=== PATIENT | female | born 1990 | race Caucasian/White ===

== ENCOUNTER → 2018-01-14 | Outpatient (CLI) | payer BC, OTHER ==
--- NOTE | 2018-01-14 15:59 | Diagnostic Imaging Report ---
PROCEDURE: US OB SINGLE FETUS <14 WKS. TECHNIQUE: Multiple Real-time grayscale images were obtained over the gravid uterus in various projections. INDICATION: dating. FINDINGS: An intrauterine gestational sac containing a pole is seen. The measurements are consistent with a 12 week 5 day gestation. The heart rate was recorded at 163 BPM. No perigestational sac hemorrhage is detected. Adnexal evaluation demonstrates the left ovary to be unremarkable. The right ovary was not visualized. IMPRESSION: Single live IUP of 12 weeks 5 days gestational age. The estimated date of confinement sonographically is 07/24/2018. Dictated by: Dictated on workstation # [id number]
== END ==
LOC: RAD 12:30
PROVIDERS: ATTEND Family Medicine
DX: Z36.89 Encounter for other specified antenatal screening (principal); Z3A.12 12 weeks gestation of pregnancy
CPT/HCPCS: 76801

== ENCOUNTER 2018-03-25 22:57 | Emergency (ER) | payer BC ==
[~2018-03-25] VITALS: Ht 158.8 cm; Wt 68.0 kg
--- OUTSIDE RECORDS SUMMARY | 2018-03-25 23:02 | XMS REPORT | Continuity of Care Document ---
Author Author [facility] Organization [facility] Address Unknown Phone Unavailable Allergies There is no data. Medications There is no data. Problems Date Dx Coded Attending Type Code Diagnosis Diagnosed By 01/14/2018 PRERNA ULRICH MD, Ot Z36.89 ENCOUNTER FOR OTHER SPECIFIED 01/14/2018 PRERNA ULRICH MD, Ot Z3A.12 12 WEEKS GESTATION OF 01/29/2018 PRERNA ULRICH MD, Ot Z36.89 ENCOUNTER FOR OTHER SPECIFIED 01/29/2018 PRERNA ULRICH MD, Ot Z3A.12 12 WEEKS GESTATION OF Procedures There is no data. Results There is no data. Encounters ACCT No. Visit Date/Time Discharge Status Pt. Type Provider Facility Loc./Unit Complaint [id number] 03/18/2018 07:37:00 03/18/2018 23:59:59 CLS Preadmit HERMINIO ARMENDARIZ DO [facility] RAD [id number] 01/14/2018 12:30:00 01/14/2018 23:59:59 CLS Outpatient PRERNA ULRICH MD [facility] RAD NORMAL [id number] 08/25/2014 16:42:00 08/25/2014 23:59:59 CLS Outpatient ARGELIA MCKNIGHT MD [facility] RT
--- NOTE | 2018-03-26 01:21 | ED General ---
General Chief Complaint: Hip/Pelvic Problems Stated Complaint: 22 WKS , TAILBONE POPPED NO OTHER SYMPTOMS Nursing Triage Note: PATIENT STATES THAT SHE HAS HAD A COUGH FOR THE PAST MONTH AND COUGHED THIS EVENING AT 1800 AND FELT A POP IN HER TAILBONE. SINCE THEN SHE CAN'T PUT ANY PRESSURE ON IT OR SIT. SHE IS ABLE TO STAND UP AND WALK AROUND WITHOUT PAIN. Nursing Sepsis Screen: No Definite Risk Source of Information: Patient Exam Limitations: No Limitations History of Present Illness Date Seen by Provider: Mar 26, 2018 Time Seen by Provider: 00:14 Initial Comments This 27-year-old woman at about 22 weeks gestational age presents to the emergency room with pain around the coccyx. She states this started during a coughing episode while at work. It is now very painful to sit or lay down. She cannot tolerate driving. She denies any blunt trauma. She has no sores, abscesses, or cyst that she is aware of. She has not taken any medications for this problem. She first noticed the pain around 18:00 when she felt a "pop" near her tailbone. Allergies and Home Medications Allergies Coded Allergies: No Known Drug Allergies (Unverified , 03/25/18) Patient Home Medication List Home Medication List Reviewed: Yes Review of Systems Review of Systems Constitutional: no symptoms reported EENTM: no symptoms reported Respiratory: no symptoms reported Cardiovascular: no symptoms reported Gastrointestinal: no symptoms reported Genitourinary: see HPI : Yes Expected Date of Delivery: Jul 24, 2018 Musculoskeletal: no symptoms reported, see HPI Skin: no symptoms reported Psychiatric/Neurological: No Symptoms Reported Hematologic/Lymphatic: No Symptoms Reported Past Cckgeem-Mthuvi-Dtzquc Hx Patient Social History Alcohol Use: Denies Use Recreational Drug Use: No Smoking Status: Never a Smoker Recent Foreign Travel: No Contact w/Someone Who Travel: No Recent Infectious Disease Expo: No Past Medical History Surgeries: Yes Eye Surgery, Orthopedic Respiratory: No Cardiac: No Neurological: No : Yes Expected Date of Delivery: Jul 24, 2018 Reproductive Disorders: No Genitourinary: No Gastrointestinal: No Musculoskeletal: No Endocrine: No HEENT: No Cancer: No Physical Exam Vital Signs Vital Signs - First Documented 03/25/18 23:26 Temp 98.0 Pulse 120 Resp 20 B/P (MAP) 135/82 (99) Pulse Ox 98 O2 Delivery Room Air Capillary Refill : Less Than 3 Seconds Height, Weight, BMI Height: 5'2.50" Weight: 150lbs. oz. 68.790567ct; BMI Method:Estimated General Appearance: WD/WN, Mild Distress HEENT: PERRL/EOMI, Normal ENT Inspection Respiratory: Lungs Clear, Normal Breath Sounds, No Accessory Muscle Use Cardiovascular: Regular Rate, Rhythm, No Edema, No Murmur Extremity: No Pedal Edema Neurologic/Psychiatric: Alert, Oriented x3, No Motor/Sensory Deficits, Normal Mood/Affect, cracker off II-XII Norm as Tested Skin: Normal Color, Warm/Dry Progress/Results/Core Measures Suspected Sepsis Recent Fever Within 48 Hours: No Infection Criteria Present: None New/Unexplained Altered Menta: No Sepsis Screen: No Definite Risk SIRS Temperature:98.0 Pulse: 120 Respiratory Rate: 20 Blood Pressure 135 /82 Mean: 99 Results/Orders Vital Signs/I&O 03/25/18 03/26/18 23:26 01:25 Temp 98.0 Pulse 120 99 Resp 20 20 B/P (MAP) 135/82 (99) 132/72 (92) Pulse Ox 98 98 O2 Delivery Room Air Capillary Refill : Less Than 3 Seconds Blood Pressure Mean: 99 Progress Note : Progress Note Patient was seen and examined. She stated she could not lie down on the exam table, even on her side. Instead she preferred to lean over the exam table. Exam was somewhat limited in this position. No lesions or signs of infection were seen or palpated during the exam. Patient seemed to have tenderness even to just the soft tissue without pressing on the coccyx itself. I'm uncertain of the etiology of her pain. I offered to treat her pain with medications which she declined stating she cannot take pills of any kind. She was tearful and seemed upset that no pathology was identified. Departure Impression Primary Impression: Coccydynia Disposition: HOME, SELF-CARE Condition: Stable/Unchanged Departure-Patient Inst. Decision time for Depature: 01:19 Referrals: ARGELIA MCKNIGHT MD (PCP/Family) Primary Care Physician Add. Discharge Instructions: You may take shbq-zkk-gigewgd Tylenol up to 1000 mg every 6 hours as needed for pain. Please contact Dr. ARMENDARIZ first thing in the morning for further direction. Return to care if you have worsening symptoms or develop new symptoms such as swelling or redness around the painful area or fevers. You may try icing the affected area in 20 minute intervals to reduce pain. Also consider using a doughnut pillow or inner tube to reduce pressure over the tailbone area. All discharge instructions reviewed with patient and/or family. Voiced understanding. Copy Copies To 1: HERMINIO ARMENDARIZ JOSHUA T MD Mar 26, 2018 01:21
[2018-03-26 01:25] VITALS: BP 132/72
== END 2018-03-26 01:24 | disposition home or self-care (01) ==
LOC: EDUNIT# 22:57 → ER 22:58
DX: O99.89 Other specified diseases and conditions complicating pregnancy, childbirth and the puerperium (principal); M53.3 Sacrococcygeal disorders, not elsewhere classified; Z3A.22 22 weeks gestation of pregnancy
CPT/HCPCS: 99281

== ENCOUNTER → 2018-04-07 | Outpatient (CLI) | payer BC ==
--- NOTE | 2018-04-07 14:27 | Diagnostic Imaging Report ---
INDICATION: Undergoing anatomical assessment. TECHNIQUE: Multiple real-time grayscale images were obtained over the gravid uterus. COMPARISON: None FINDINGS: There is presence of single viable intrauterine , currently in transverse orientation. Normal amount of amniotic fluid. Placenta is posterior and without previa. anatomical assessment demonstrates the kidneys, bladder, stomach, intracranial structures, four-chamber heart, three-vessel cord, and cord insertion site to be unremarkable. The spine cannot be well visualized owing to positioning. Additionally, the four-chamber heart is limited in evaluation. Gestational sac appearing unremarkable. No abnormal perigestational fluid collections. Visualized portions of the cervix appearing unremarkable. adnexal structures are not imaged. Biometrical measurements are as follows: Biparietal 5.86 cm, age 24 weeks 0 days. Head circumference 22.22 cm, age 24 weeks 2 days. Abdominal circumference 18.06 cm, age 23 weeks 0 days. Femur length 4.37 cm, age 24 weeks 3 days. Sonographic estimate age: 24 weeks 0 days. Sonographic estimated date of delivery: 07/28/2018. Estimated Weight: 614 gm (+/- 90 gm). LMP percentile: 8%. heart rate: 143 beats per minute. number: 1 of 1. IMPRESSION: Single viable intrauterine , currently in transverse orientation. Sonographic estimated age is 24 weeks 0 days for an estimated date of delivery of July 28, 2018. No abnormalities noted at this time. However, the spine cannot be well assessed owing to positioning. Additionally, there is somewhat limited assessment of the four-chamber heart. Dictated by: Dictated on workstation # [id number]
== END ==
LOC: RAD 12:10
PROVIDERS: ATTEND Obstetrics & Gynecology
DX: Z36.89 Encounter for other specified antenatal screening (principal); Z3A.24 24 weeks gestation of pregnancy
CPT/HCPCS: 76805

== ENCOUNTER 2018-07-06 18:52 | Inpatient (IN) | payer BC ==
[~2018-07-06] VITALS: Ht 158.8 cm; Wt 72.6 kg
--- NOTE | 2018-07-06 19:00 | NUR ---
JOIE CLEMENT presented to unit via ambulation from ED registration/home, accompanied by SO & friend, for INDUCTION. JOIE CLEMENT weighed, gowned, voided, and to bed. EFHM and TOCO applied, VS taken. JOIE CLEMENT oriented to bed controls, call light, TV, heat, and A/C controls.
[2018-07-06 19:22] VITALS: BP 123/77
[2018-07-06] MEDS ORDERED: D5 LR IV SOLUTION 1,000 ML IV ONE (19:29)
[2018-07-06] MEDS ORDERED: LACTATED RINGERS 1,000 ML IV ONE (19:30)
--- OUTSIDE RECORDS SUMMARY | 2018-07-06 19:48 | XMS REPORT | Continuity of Care Document ---
Author Author [facility] Organization [facility] Address Unknown Phone Unavailable Allergies Active Description Code Type Severity Reaction Onset Reported/Identified Relationship to Patient Clinical Status Yes No Known Drug Allergies [id number] Drug Allergy Unknown N/A 03/25/2018 Medications There is no data. Problems Date Dx Coded Attending Type Code Diagnosis Diagnosed By 01/14/2018 PRERNA ULRICH MD Ot Z36.89 ENCOUNTER FOR OTHER SPECIFIED 01/14/2018 PRERNA ULRICH MD Ot Z3A.12 12 WEEKS GESTATION OF 01/29/2018 PRERNA ULRICH MD Ot Z36.89 ENCOUNTER FOR OTHER SPECIFIED 01/29/2018 PRERNA ULRICH MD Ot Z3A.12 12 WEEKS GESTATION OF 03/25/2018 PRERNA ULRICH MD Ot Z36.89 ENCOUNTER FOR OTHER SPECIFIED 03/25/2018 PRERNA ULRICH MD Ot Z3A.12 12 WEEKS GESTATION OF 03/26/2018 PHILIP DEL VALLE MD Ot M53.3 SACROCOCCYGEAL DISORDERS, NOT ELSEWHERE 03/26/2018 PHILIP DEL VALLE MD T Ot O26.892 OTH RELATED CONDITIONS, SECOND 03/26/2018 PHILIP DEL VALLE MD T Ot O99.89 OTH DISEASES AND CONDITIONS COMPL PREG/C 03/26/2018 PHILIP DEL VALLE MD Ot Z3A.22 22 WEEKS GESTATION OF 03/26/2018 PHILIP DEL VALLE MD Ot M53.3 SACROCOCCYGEAL DISORDERS, NOT ELSEWHERE 03/26/2018 PHILIP DEL VALLE MD Ot O26.892 OTH RELATED CONDITIONS, SECOND 03/26/2018 PHILIP DEL VALLE MD T Ot O99.89 OTH DISEASES AND CONDITIONS COMPL PREG/C 03/26/2018 PHILIP DEL VALLE MD T Ot Z3A.22 22 WEEKS GESTATION OF 04/08/2018 HERMINIO ARMENDARIZ DO Ot Z36.89 ENCOUNTER FOR OTHER SPECIFIED 04/08/2018 HERMINIO ARMENDARIZ DO Ot Z3A.24 24 WEEKS GESTATION OF 04/27/2018 HERMINIO ARMENDARIZ DO Ot Z36.89 ENCOUNTER FOR OTHER SPECIFIED 04/27/2018 HERMINIO ARMENDARIZ DO Ot Z3A.24 24 WEEKS GESTATION OF Procedures There is no data. Results There is no data. Encounters ACCT No. Visit Date/Time Discharge Status Pt. Type Provider Facility Loc./Unit Complaint [id number] 04/07/2018 12:10:00 04/07/2018 23:59:59 CLS Outpatient HERMINIO ARMENDARIZ DO [facility] RAD [id number] 03/25/2018 22:58:00 03/26/2018 01:24:00 DIS Emergency ELIGIO FRANCISCO, PHILIP Peres [facility] ER 22 WKS , TAILBONE POPPED NO OTHER SYMPTOMS [id number] 01/14/2018 12:30:00 01/14/2018 23:59:59 CLS Outpatient MOJGAN FRANCISCO, PRERNA Basilio [facility] RAD NORMAL [id number] 08/25/2014 16:42:00 08/25/2014 23:59:59 CLS Outpatient JUAN LUIS FRANCISCO, ARGELIA Viera [facility] RT
[2018-07-06] MEDS ORDERED: MISOPROSTOL 100 MCG (CYTOTEC) TAB ONE (19:54)
[2018-07-06] MEDS ORDERED: LACTATED RINGERS 1,000 ML IV NR (19:57)
[2018-07-06] MEDS ORDERED: MISOPROSTOL 100 MCG (CYTOTEC) TAB PO NR (20:00)
[2018-07-06 20:06] VITALS: BP 123/64
[2018-07-06 20:52] LABS: BASOPHILS % (AUTO) 0 % (0-10); EOSINOPHILS # (AUTO) 0.1 10^3/uL (0.0-0.3); EOSINOPHILS % (AUTO) 1 % (0-10); HEMATOCRIT 30 % (35-52); HEMOGLOBIN 10.1 G/DL (11.5-16.0); LYMPHOCYTES # (AUTO) 2.3 X 10^3 (1.0-4.0); LYMPHOCYTES % (AUTO) 22 % (12-44); MEAN CORPUSCULAR HEMOGLOBIN 30 PG (25-34); MEAN CORPUSCULAR HGB CONC 34 G/DL (32-36); MEAN CORPUSCULAR VOLUME 88 FL (80-99); MEAN PLATELET VOLUME 11.6 FL (7.4-10.4); MONOCYTES # (AUTO) 0.8 X 10^3 (0.0-1.0); MONOCYTES % (AUTO) 8 % (0-12); NEUTROPHILS # (AUTO) 7.1 X 10^3 (1.8-7.8); NEUTROPHILS % (AUTO) 69 % (42-75); PLATELET COUNT 211 10^3/uL (130-400); RED CELL DISTRIBUTION WIDTH 12.8 % (10.0-14.5); WHITE BLOOD COUNT 10.2 10^3/uL (4.3-11.0)
[2018-07-06] MEDS: D5 LR IV SOLUTION 1,000 ML IV SCH (20:52)
[2018-07-06 21:27] VITALS: BP 118/74
--- NOTE | 2018-07-06 21:28 | History & Physical-OB ---
OB - Chief Complaint & HPI Date/Time Date of Admission: Date of Admission: Jul 06, 2018 at 18:52 Date seen by a Provider: Jul 07, 2018 Time Seen by a Provider: 08:00 Chief Complaint/History OB-Reason for Admission/Chief: Induction of Labor Hx : 1 Hx Para: 0 Expected Date of Delivery: Jul 23, 2018 Gestational Age in Weeks: 37 Gestational Age in Days: 4 Indication for : other (Oligohydramnios) Admission Nurse Assessment Rev: Yes History of Labs O pos Antibody neg RI RPR NR HBsAg NR HIV NR GC neg GBS neg Allergies and Home Medications Allergies Coded Allergies: No Known Drug Allergies (Unverified , 03/25/18) Patient Home Medication List Home Medication List Reviewed: Yes OB - History Hx of Present Care: Yes Ultrasounds: Abnormal US findings (Oligo noted at 35 weeks after measuring size < dates) Obstetrical Complications: None Medical Complications: None Patient Past Medical History N/A OB - Admission Exam Physical Exam HEENT: NCAT Heart: Rhythm Normal Lungs: Clear Abdomen: Gravid Extremities: Normal Reflexes: Normal Cervical Dilatation: 1cm Effacement: 75% Station: -1 Membranes: Intact Heart Rate: 130's Accelerations: Accelerations Present Decelerations: No Decelerations Short Term Variability: Present Fci Variability: Absent (0-2) Contractions on Admission: >10 Minutes Apart Labs Laboratory Tests Test 07/06/18 19:40 Range/Units White Blood Count 10.2 4.3-11.0 10^3/uL Red Blood Count 3.38 L 4.35-5.85 10^6/uL Hemoglobin 10.1 L 11.5-16.0 G/DL Hematocrit 30 L 35-52 % Mean Corpuscular Volume 88 80-99 FL Mean Corpuscular Hemoglobin 30 25-34 PG Mean Corpuscular Hemoglobin Concent 34 32-36 G/DL Red Cell Distribution Width 12.8 10.0-14.5 % Platelet Count 211 130-400 10^3/uL Mean Platelet Volume 11.6 H 7.4-10.4 FL Neutrophils (%) (Auto) 69 42-75 % Lymphocytes (%) (Auto) 22 12-44 % Monocytes (%) (Auto) 8 0-12 % Eosinophils (%) (Auto) 1 0-10 % Basophils (%) (Auto) 0 0-10 % Neutrophils # (Auto) 7.1 1.8-7.8 X 10^3 Lymphocytes # (Auto) 2.3 1.0-4.0 X 10^3 Monocytes # (Auto) 0.8 0.0-1.0 X 10^3 Eosinophils # (Auto) 0.1 0.0-0.3 10^3/uL Basophils # (Auto) 0.0 0.0-0.1 10^3/uL OB - Assessment/Plan/Diagnosis Assessment Assessment: induction of labor Admission Dx 27 yo @ 37.5 weeks Oligohydramnios Size < dates GBS neg Admission Status: Inpatient Order (span 2 midnights) Reason for Inpatient Admission: Induction of labor at term Plan Plan: Induction Induction Method: per Misoprostol Protocol HERMINIO ARMENDARIZ DO Jul 06, 2018 21:28
--- NOTE | 2018-07-06 22:20 | NUR ---
Dr. Cox called to check on pt, update given, new order rc'd for Dilaudid 1 mg IV X1 prn pain.
[2018-07-06 22:28] VITALS: BP 119/66
[2018-07-06] MEDS: CATHETER FLUSH 10 ML SYR IV SCH (22:57)
[2018-07-06 23:11] LABS: BILIRUBIN,URINE NEGATIVE (NEGATIVE); CLARITY,URINE VERY CLOUDY; COLOR,URINE YELLOW; GLUCOSE, URINE (UA) NEGATIVE (NEGATIVE); KETONES,URINE NEGATIVE (NEGATIVE); LEUKOCYTE ESTERASE ,URINE 1+ (NEGATIVE); NITRITE,URINE NEGATIVE (NEGATIVE); PH,URINE 7 (5-9); PROTEIN,URINE 2+ (NEGATIVE); UROBILINOGEN,URINE NORMAL (NORMAL)
[2018-07-06 23:17] LABS: BACTERIA,URINE MODERATE /HPF; RBC,URINE TNTC /HPF; WBC,URINE 0-2 /HPF
[2018-07-06] MEDS ORDERED: PNV91TAB6 PO (23:18)
[2018-07-06 23:28] VITALS: BP 111/53
[2018-07-07] VITALS (92 sets, daily range): BP systolic 88–133; BP diastolic 50–90
[2018-07-07] MEDS: MISOPROSTOL 100 MCG (CYTOTEC) TAB PO SCH ×2 (00:05→04:23)
[2018-07-07] MEDS: D5 LR IV SOLUTION 1,000 ML IV SCH ×3 (04:39→20:50)
--- NOTE | 2018-07-07 05:55 | NUR ---
Dr. Cox called to check on pt, update given, new order rc'd to start Pitocin per protocol @ 629.
[2018-07-07] MEDS: CATHETER FLUSH 10 ML SYR IV SCH ×2 (06:17→15:42)
[2018-07-07] MEDS ORDERED: OXYTOCIN/NORMAL SALINE 500 ML IV ONE (06:22)
[2018-07-07] MEDS ORDERED: OXYTOCIN/NORMAL SALINE 500 ML IV SCH (06:30)
[2018-07-07] MEDS ORDERED: HYDROmorphone 2 MG/ML VIAL (DILAUDID) IV ONE ×2 (06:45→13:15)
--- NOTE | 2018-07-07 07:00 | NUR ---
REPORT FROM Eran WOODS RN.
[2018-07-07] MEDS ORDERED: FLU QUADRIvalent (5+ YOA) 2018-2019 (AFLURIA) 0.5 ML IM ONE (07:15)
[2018-07-07] MEDS ORDERED: HYDROmorphone 2 MG/ML VIAL (DILAUDID) ONE (13:11)
[2018-07-07] MEDS ORDERED: ONDANSETRON 4 MG/2 ML (SDV) Z0FRAN ONE (17:06)
[2018-07-07] MEDS ORDERED: ONDANSETRON 4 MG/2 ML (SDV) Z0FRAN IVP PRN (17:15)
[2018-07-07] MEDS ORDERED: SUFENTA 0.6MCG/ML BUPIVA 0.125 100 ML ONE (19:32)
[2018-07-07] MEDS ORDERED: BUPIVACAINE 0.25% 30 ML (SENSORCAINE) VIAL ONE (19:51)
[2018-07-07] MEDS ORDERED: LIDOCAINE PF 2% 5 ML (XYLOCAINE) VIAL ONE (19:51)
[2018-07-07] MEDS ORDERED: fentaNYL INJECTION 100 MCG/2 ML AMP ONE (19:51)
[2018-07-07] MEDS: EPIDURAL (SUFENTA 0.6MCG/ML BUPIVA 0.125%) 100 ML BAG EPI PRN (20:26)
[2018-07-07] MEDS ORDERED: LACTATED RINGERS 1,000 ML IV SCH (20:31)
[2018-07-07] MEDS ORDERED: NALOXONE 0.4 MG/ML 1 ML (NARCAN) VIAL IV PRN (20:45)
[2018-07-07] MEDS ORDERED: diphenhydrAMINE 50 MG/ML INJ (BENADRYL) IV PRN (20:45)
[2018-07-07] MEDS ORDERED: ONDANSETRON 4 MG/2 ML (SDV) Z0FRAN IV PRN (20:45)
[2018-07-08] VITALS (34 sets, daily range): BP systolic 81–121; BP diastolic 50–84
[2018-07-08] MEDS: CATHETER FLUSH 10 ML SYR IV SCH ×2 (00:55→07:26)
[2018-07-08] MEDS: D5 LR IV SOLUTION 1,000 ML IV SCH (03:47)
[2018-07-08] MEDS: EPIDURAL (SUFENTA 0.6MCG/ML BUPIVA 0.125%) 100 ML BAG EPI PRN (04:57)
--- NOTE | 2018-07-08 05:07 | NUR ---
Called Dr. Cox, update given including recent decel @ 2685, no new orders rc'd.
--- NOTE | 2018-07-08 06:12 | NUR ---
Notified Dr[facility] pt's temp. 0616 - New orders rc'd to notify supervisor of officials to call surg crew for c/s. POC reviewed w/pt. & , questions answered, both verbalized understanding.
[2018-07-08] MEDS ORDERED: CITRIC ACID/SOB CIT (BICITRA) 30 ML UDC ONE (06:16)
[2018-07-08] MEDS ORDERED: METOCLOPRAMIDE INJ 10 MG/2 ML (REGLAN) ONE (06:16)
[2018-07-08] MEDS ORDERED: FAMOTIDINE 20MG/2ML IV (PEPCID) ONE (06:16)
[2018-07-08] MEDS ORDERED: ceFAZolin INJECTION 1,000 MG ONE (06:24)
[2018-07-08] MEDS ORDERED: WATER (STERILE) FOR INJECTION 10 ML ONE (06:25)
[2018-07-08] MEDS ORDERED: LIDOCAINE PF 2% 5 ML (XYLOCAINE) VIAL ONE ×2 (06:27→07:25)
[2018-07-08] MEDS ORDERED: fentaNYL INJECTION 100 MCG/2 ML AMP ONE ×2 (06:43→07:57)
[2018-07-08] MEDS ORDERED: LACTATED RINGERS 1,000 ML IV PRN (06:44)
[2018-07-08] MEDS ORDERED: METOCLOPRAMIDE INJ 10 MG/2 ML (REGLAN) IV ONE (06:45)
[2018-07-08] MEDS ORDERED: CITRIC ACID/SOB CIT (BICITRA) 30 ML UDC PO ONE (06:45)
[2018-07-08] MEDS ORDERED: FAMOTIDINE 20MG/2ML IV (PEPCID) IV ONE (06:45)
[2018-07-08] MEDS ORDERED: OXYTOCIN/NORMAL SALINE 500 ML IV SCH (06:55)
--- NOTE | 2018-07-08 06:55 | Progress Note-Standard ---
Standard Progress Note Progress Notes/Assess & Plan Date Seen by a Provider: Jul 08, 2018 Time Seen by a Provider: 06:15 Progress/Assessment & Plan Patient admitted Friday evening for IOL at 37.5 due to oligohydramnios. Given cytotec overnight and started on pitocin yesterday morning. She was not progressing, and georges bulb was attempted to be placed without success. AROM was finally able to be done at 1300 yesterday afternoon, pitocin augmentation was continued and epidural was obtained by the patient. She continued to have a dysfunction contraction pattern despite pitocin augmentation, and halving the dose, and restarting the titration. This was attempted several times throughout the day yesterday. Finally this am she had a prolonged decel lasting nearly 5 min with return to baseline this was follow shortly by tachycardia and change in baseline to 170s. Still no cervical change was noted and she never progressed by . I discussed with the patient my concerns for well being with this new onset of tachycardia and with prolonged rupture approaching, as well as her being remote from delivery my concerns for onset of chorioamnionitis if we do not proceed with a more expedited approach. I discussed with the patient , and risk involved vs waiting and continuing attempted vaginal delivery and risk involved. We decided together with S.O. present that would be our best option. OR crew notified and in route will proceed when available HERMINIO ARMENDARIZ DO Jul 08, 2018 6:55 am
--- NOTE | 2018-07-08 06:59 | Discharge Inst-Women's Service ---
Discharge Inst-Women's Serv Depart Medication/Instructions New, Converted or Re-Newed RX: RX on Chart Consults/Follow Up Additional Follow Up: Yes Orders/Referrals Dr. Cox in 7-10 days and in 6 weeks Activity Activity: Activity as Tolerated Driving Instructions: No Driving for 1 Week NO SMOKING: NO SMOKING Nothing Inside Vagina: No Douching, No [place], No Tampons Diet Discharge Diet: No Restrictions Symptoms to Report to : Bleeding Excessive, Pain Increased, Fever Over 101 Degrees F, Vaginal Bleeding Increase, Questions/Concerns For Any Problems or Questions: Contact Your Physician Skin/Wound Care Infection Signs and Symptoms: Increased Redness, Foul Odor of Wound, Increased Drainage, Skin Itchy or Has a Rash, Increased Swelling, Temperature Above 101 F Operative Area Clean and Dry: Keep Incision Clean/Dry Stitches/Melisa/Dermabond: Dermabond, Care of Stitches Bathing Instructions: HERMINIO Nickerson DO Jul 08, 2018 6:59 am
[2018-07-08] MEDS ORDERED: MEASLES,MUMPS,RUBELLA 1 EA INJ SC SCH (07:00)
[2018-07-08] MEDS ORDERED: ceFAZolin INJECTION 1,000 MG in WATER (STERILE) FOR INJECTION 10 ML IV NR (07:00)
[2018-07-08] MEDS ORDERED: ACHD5005 PO (07:00)
[2018-07-08] MEDS ORDERED: TETANUS,DIPTH,PERTUSS P/F (BOOSTRIX) 0.5 ML VIAL IM SCH (07:00)
[2018-07-08] MEDS ORDERED: IBUP-844 PO (07:00)
[2018-07-08] MEDS ORDERED: DOCU100C37 PO (07:00)
[2018-07-08] MEDS ORDERED: HYDROmorphone 2 MG/ML VIAL (DILAUDID) IV PRN (07:00)
[2018-07-08] MEDS ORDERED: ONDANSETRON 4 MG/2 ML (SDV) Z0FRAN IVP PRN ×2 (07:00→08:15)
[2018-07-08] MEDS ORDERED: HYDROcodone/APAP 5 MG/325 MG (LORTAB) TAB PO PRN (07:00)
[2018-07-08] MEDS ORDERED: proPOfol 200 MG/20 ML (DIPRIVAN) VIAL IV ONE (07:22)
[2018-07-08] MEDS ORDERED: METHYLERGONOVINE 0.2 MG/ML (METHERGINE) AMP ONE (07:25)
[2018-07-08] MEDS ORDERED: ROPIVACAINE 5MG/ML 30ML VIAL ONE (07:30)
[2018-07-08] MEDS ORDERED: HYDROmorphone 2 MG/ML VIAL (DILAUDID) IV ONE (08:15)
--- NOTE | 2018-07-08 09:00 | OPERATIVE REPORT ---
DATE OF SERVICE: PREOPERATIVE DIAGNOSES: 1. A 27-year-old G1, P0 at 37 weeks and 5 days gestation. 2. Failure to progress. 3. Prolonged tachycardia. 4. Remote from delivery. POSTOPERATIVE DIAGNOSES: 1. A 27-year-old G1, P0 at 37 weeks and 5 days gestation. 2. Failure to progress. 3. Prolonged tachycardia. 4. Remote from delivery. PROCEDURE: Primary low transverse section. SURGEON: Sky Armendariz DO ANESTHESIA: Epidural, which was bolused. ESTIMATED BLOOD LOSS: 500 mL. URINE OUTPUT: 150 mL clear at the end of the procedure with slight blood tinge that was noted before the procedure. FLUIDS: 1500 mL lactated Ringer's solution. FINDINGS: A live female with Apgars of 2, 4 and a 10 minute 8 with weight pending. Grossly normal appearing uterus, bilateral fallopian tubes and ovaries. SPECIMENS SENT: Placenta. INDICATIONS FOR PROCEDURE: A 27-year-old female was brought in on Friday evening for induction of labor due to oligohydramnios noted on ultrasound. This was initially done due to uterine fundus measuring significantly less than dates. Oligohydramnios was identified at 35 weeks and monitored up to 37, but at 37 weeks, was still present. I discussed with the patient proceeding with induction due to oligohydramnios. Risk of the induction was reviewed with the patient. She was brought in on Friday night. Cytotec was given overnight orally and Pitocin augmentation was started the next morning. Artificial rupture of membranes was performed at 1:00 yesterday afternoon with clear fluid noted. She was noted to be 1 to 2 cm at that point, 70% effaced and -2. Continuous augmentation throughout the day and throughout the evening and roadway designer resulted in times of a dysfunctional contraction pattern; however, there was no cervical change despite the patient becoming acutely more uncomfortable and contractions becoming more and more regular. Due to failure to progress and as well as an onset of tachycardia early this morning, I discussed with the patient my concerns for chorioamnionitis and a prolonged rupture time frame that is approaching. She was remote from delivery at that point, so I discussed with the patient proceeding with delivery. Risks of procedure were discussed with the patient in detail with her and her significant other present. All the questions were answered pertaining to my assessment as well as my plan of care and the reasoning involved there in. After all their questions were answered, they were agreeable to proceed. Consent was obtained. The patient was taken to the operating room. OPERATIVE REPORT IN DETAIL: Once in the operating room, epidural analgesia was bolused and found to be adequate. She was placed in the supine position with leftward tilt, prepped and draped in normal sterile fashion. Anesthesia was tested and timeout was performed. I then proceeded with a Pfannenstiel skin incision with a knife and carried down to the underlying fascia using Bovie cautery. Fascial incision extended laterally using Bovie cautery. Superior aspect of the fascial incision was then grasped with Brent clamps, tented up and dissected off the underlying rectus muscles. The inferior aspect of the fascial incision was then grasped with Brent clamps, tented up and dissected off the underlying rectus muscles. Rectus muscle was then dissected down the midline using Metzenbaum scissors which exposes the peritoneum, which I entered bluntly and extended using blunt traction. An Severo ring retractor was placed within the peritoneal incision, which offers excellent lateral sidewall retraction. I then identified the lower uterine segment, which was found to be thinned out. I made a low transverse incision to the vesicouterine peritoneum and bluntly dissected this off the lower uterine segment, creating a bladder flap. I then proceeded with my myotomy until membranes were visualized, at which point I extended the uterine incision laterally and superiorly using bandage scissors. The was found in the vertex presentation. With gentle fundal pressure, the 's head has elevated up to the incision where it is delivered through the incision. The nares and oropharynx were then bulb suctioned. Anterior and posterior shoulders were delivered. The was then brought into the operative field where the cord was doubly clamped and cut and infant was handed off to waiting pediatric nurses in attendance. Cord blood was collected. A 3-vessel cord with intact placenta was delivered spontaneously thereafter. IV Pitocin was initiated to facilitate uterine contraction. The uterine fundus becomes mildly increased in tone; however, I exteriorized the uterus and clear it of all endometrial clots and debris. Ongoing bimanual manipulation revealed some mild uterine atony, so 0.2 mg of Methergine was ordered to be given IM, which was given by anesthesia at which point uterine tone significantly improved. I then proceeded with closing the uterine incision using 0 Vicryl suture in a locked fashion. A second layer of imbricating 0 Monocryl was placed. Excellent hemostasis was noted after doing this. I then placed the uterus back in the pelvis and copiously irrigated the pelvis using normal saline. Once again, there is no active bleeding noted from any of my dissection planes. I placed Interceed antiadhesive over my low transverse incision and proceeded with closing the peritoneum using 3-0 Vicryl suture in a running fashion after I removed the Severo ring retractor. The rectus muscle was reapproximated using 3-0 Vicryl suture in an interrupted fashion. The fascia was reapproximated using 0 Vicryl suture in running fashion. Subcutaneous tissue was reapproximated using 3-0 plain interrupted subcutaneous stitch and skin was reapproximated using 4-0 Monocryl running subcuticular. Dermabond was applied to the incision, sterile dressing with adhesive white tape. The patient tolerated the procedure well and sent to recovery area in stable condition. Lap and sponge counts were correct at the end of the procedure. Instrument counts correct as well. One gram of Ancef given preoperatively for infection prophylaxis. Job ID: [id number] DocumentID: [id number] Dictated Date: 07/08/2018 08:28:18 [employer] Date: 07/08/2018 08:59:48 Dictated By: SKY ARMENDARIZ DO
--- NOTE | 2018-07-08 09:15 | NUR ---
Pt to room 307 via bed accompanied by PACU staff. Pt oriented to room and call light. VS taken. IV pitocin to pump. SCD's off at this time per pt preference. Family at bedside. FFU, light rubra lochia noted, no clots expressed. Pt c/o pain, toradol given. Fresh ice water provided. Report rec'd from WESTLEY Wilson.
[2018-07-08] MEDS: KETOROLAC 30 MG/ML VIAL IVP SCH ×3 (09:31→21:21)
--- NOTE | 2018-07-08 11:00 | NUR ---
Valiente removed per Eddy Yepez RN. Murtaza performed, fresh vpad and underwear applied. Pt assisted to wheelchair without difficulty. To nsy to see infant.
--- NOTE | 2018-07-08 11:15 | NUR ---
Pt back to room from ns via wheelchair. VS taken. Denies needs or concerns at this time.
[2018-07-08] MEDS ORDERED: CATHETER FLUSH 10 ML SYR IV SCH (14:00)
--- NOTE | 2018-07-08 16:30 | NUR ---
Pt up to void, assisted by family. +void, 400ml urine noted. Pt changed into own clothes. To nsy to see infant.
[2018-07-08] MEDS: DOCUSATE SODIUM 100 MG (COLACE) CAP PO SCH (21:23)
--- NOTE | 2018-07-08 21:23 | NUR ---
Patient finishing up in nsy seeing . Preparing to go back to pp room. No pain or needs at this time.
[2018-07-09 00:30] VITALS: BP 111/67
[2018-07-09] MEDS: KETOROLAC 30 MG/ML VIAL IVP SCH (03:47)
[2018-07-09 03:48] VITALS: BP 108/71
[2018-07-09 06:36] LABS: BASOPHILS % (AUTO) 0 % (0-10); EOSINOPHILS # (AUTO) 0.1 10^3/uL (0.0-0.3); EOSINOPHILS % (AUTO) 0 % (0-10); HEMATOCRIT 27 % (35-52); HEMOGLOBIN 8.9 G/DL (11.5-16.0); LYMPHOCYTES # (AUTO) 1.8 X 10^3 (1.0-4.0); LYMPHOCYTES % (AUTO) 12 % (12-44); MEAN CORPUSCULAR HEMOGLOBIN 29 PG (25-34); MEAN CORPUSCULAR HGB CONC 33 G/DL (32-36); MEAN CORPUSCULAR VOLUME 90 FL (80-99); MEAN PLATELET VOLUME 11.8 FL (7.4-10.4); MONOCYTES # (AUTO) 1.3 X 10^3 (0.0-1.0); MONOCYTES % (AUTO) 9 % (0-12); NEUTROPHILS # (AUTO) 12.3 X 10^3 (1.8-7.8); NEUTROPHILS % (AUTO) 80 % (42-75); PLATELET COUNT 179 10^3/uL (130-400); RED CELL DISTRIBUTION WIDTH 13.1 % (10.0-14.5); WHITE BLOOD COUNT 15.4 10^3/uL (4.3-11.0)
--- NOTE | 2018-07-09 07:22 | Anesthesia-Regional Post-Op ---
Regional Patient Condition Mental Status: Alert, Oriented x3 Circulation: Same as Pre-Op Headache: Absent Sensation: Full Recovery Motor Block: Absent Post Op Complications Complications None Follow Up Care/Instructions Patient Instructions None needed. Anesthesia/Patient Condition Patient is doing well, no complaints, stable vital signs, no apparent adverse anesthesia problems. No complications reported per nursing. ORESTES SCHMIDT CRNA Jul 09, 2018 07:22
[2018-07-09 08:00] VITALS: BP 118/78
[2018-07-09] MEDS: DOCUSATE SODIUM 100 MG (COLACE) CAP PO SCH (09:45)
[2018-07-09] MEDS: IBUPROFEN 600 MG (MOTRIN) TAB PO SCH ×3 (09:51→18:34)
--- NOTE | 2018-07-09 10:26 | Postpartum Progress Note ---
Note Note Day # 1 Subjective: Patient is without complaints. Ambulating, voiding. Tolerating a regular diet without nausea or vomiting. Normal lochia. Pain is well controlled with oral pain medications. Objective: Physical Exam: General - Alert and oriented, no apparent distress Abdomen - Soft, appropriately tender to palpation, non-distended, fundus firm at umbilicus Extremities - no edema, negative Aime's bilaterally Incision: c/d/i Assessment: POD 1 PLTCS Acute blood loss anemia Plan: Routine care. Encourage breast feeding. Encourage ambulation. Ferrous sulfate supplementation. Plan for discharge tomorrow Vitals - Labs Vital Signs - I&O Vital Signs Date Time Temp Pulse Resp B/P (MAP) Pulse Ox O2 Delivery O2 Flow Rate FiO2 07/09/18 08:10 Room Air 07/09/18 08:00 98.8 95 18 118/78 (91) 99 Room Air 07/09/18 03:48 98.4 81 18 108/71 (83) 98 Room Air 07/09/18 00:30 98.4 89 18 111/67 (82) 98 Room Air 07/08/18 19:45 98.4 89 18 119/84 (96) 99 Room Air 07/08/18 15:25 99.6 88 20 121/74 (90) 96 Room Air 07/08/18 12:07 Room Air 07/08/18 11:20 99.7 84 20 120/71 (87) 96 Room Air I & O 07/09/18 07:00 Intake Total 1310 ml Output Total 575 ml Balance 735 ml Labs Laboratory Tests 07/09/18 06:05: White Blood Count 15.4H, Red Blood Count 3.06L, Hemoglobin 8.9L, Hematocrit 27L , Mean Corpuscular Volume 90, Mean Corpuscular Hemoglobin 29, Mean Corpuscular Hemoglobin Concent 33, Red Cell Distribution Width 13.1, Platelet Count 179, Mean Platelet Volume 11.8H, Neutrophils (%) (Auto) 80H, Lymphocytes (%) (Auto) 12, Monocytes (%) (Auto) 9, Eosinophils (%) (Auto) 0, Basophils (%) (Auto) 0, Neutrophils # (Auto) 12.3H, Lymphocytes # (Auto) 1.8, Monocytes # (Auto) 1.3H, Eosinophils # (Auto) 0.1, Basophils # (Auto) 0.0 Microbiology 07/06/18 Urine Culture - Final, Complete See Report HERMINIO ARMENDARIZ DO Jul 09, 2018 10:26
[2018-07-09 11:41] VITALS: BP 108/78
[2018-07-09] MEDS ORDERED: FLU QUADRIvalent (5+ YOA) 2018-2019 (AFLURIA) 0.5 ML IM ONE (16:04)
[2018-07-09 22:28] VITALS: BP 130/74
[2018-07-10 04:00] VITALS: BP 110/68
--- NOTE | 2018-07-10 08:05 | NUR ---
DR. ARMENDARIZ AND THIS RN TO BEDSIDE. ASSESSING PT AND DISCUSSING DISCHARGE. PT DENIES ANY QUESTIONS OR NEEDS AT THIS TIME. WILL RETURN LATER FOR VS AND ASSESSMENT. CALL LIGHT WITHIN REACH. S/O AT THE BEDSIDE.
--- NOTE | 2018-07-10 08:23 | Postpartum Progress Note ---
Note Note Day # 2 Subjective: Patient is without complaints. Ambulating, voiding. Tolerating a regular diet without nausea or vomiting. Normal lochia. Pain is well controlled with oral pain medications. Objective: Physical Exam: General - Alert and oriented, no apparent distress Abdomen - Soft, appropriately tender to palpation, non-distended, fundus firm at umbilicus Extremities - no edema, negative Amie's bilaterally Incision: c/d/i Assessment: POD 2 PLTCS Acute blood loss anemia Plan: Routine care. Encourage breast feeding. Encourage ambulation. Ferrous sulfate supplementation. Plan for discharge today Vitals - Labs Vital Signs - I&O Vital Signs Date Time Temp Pulse Resp B/P (MAP) Pulse Ox O2 Delivery O2 Flow Rate FiO2 07/10/18 04:00 98.8 95 16 110/68 (82) 07/09/18 22:28 98.4 101 18 130/74 (92) Room Air 07/09/18 11:41 98.8 90 18 108/78 (88) 97 Room Air I & O 07/10/18 07:00 Intake Total 1200 ml Balance 1200 ml Labs Microbiology 07/06/18 Urine Culture - Final, Complete See Report HERMINIO ARMENDARIZ DO Jul 10, 2018 08:23
[2018-07-10 09:00] VITALS: BP 118/67
[2018-07-10] MEDS: DOCUSATE SODIUM 100 MG (COLACE) CAP PO SCH (09:01)
--- NOTE | 2018-07-10 09:05 | NUR ---
PT IN BED, HOLDING INFANT. VS OBTAINED. INITIAL SHIFT ASSESSMENT COMPLETED; SEE INTERVENTION FOR FURTHER. COLACE GIVEN PO; SEE EMAR. DR. ROD TO BEDSIDE TO ASSESS INFANT. PT DENIES ANY NEEDS AT THIS TIME. CALL LIGHT WITHIN REACH.
--- NOTE | 2018-07-10 09:56 | NUR ---
DISCHARGE PAPERS PROVIDED AND REVIEWED WITH PT, PT VERBALIZES UNDERSTANDING AND DENIES ANY QUESTIONS AT THIS TIME. PAPER SIGNED. FOLLOW UP APPOINTMENT CARDS X2 AND RX'S X3 ALSO PROVIDED AND PLACED INTO DISCHARGE FOLDER.
--- NOTE | 2018-07-10 10:06 | NUR ---
(1) LORTAB GIVEN PO; SEE EMAR FOR FURTHER. SPRITE, CRACKERS AND PADS PROVIDED PER REQUEST. PT WILL BE DISCHARGED TO [facility]. TEACHING DONE RE: [facility] STATUS AND ROOM SERVICE. NO QUESTIONS VOICED.
--- NOTE | 2018-07-10 10:45 | NUR ---
PT DISCHARGED FROM -[facility] TO [facility] STATUS IN STABLE CONDITION WITH NO S/S OF DISTRESS.
== END 2018-07-10 10:45 | disposition home or self-care (01) | DRG 787 ==
LOC: LDRP 18:52
PROVIDERS: ADMIT Obstetrics & Gynecology; ATTEND Obstetrics & Gynecology
PROC: 10D00Z1 Extraction of Products of Conception, Low, Open Approach (ICD-10-PCS; principal; 2018-07-08 06:58)
DX: O41.03X0 Oligohydramnios, third trimester, not applicable or unspecified (principal); O99.03 Anemia complicating the puerperium; D62 Acute posthemorrhagic anemia; O76 Abnormality in fetal heart rate and rhythm complicating labor and delivery; O75.89 Other specified complications of labor and delivery; O26.843 Uterine size-date discrepancy, third trimester; Z3A.37 37 weeks gestation of pregnancy; Z37.0 Single live birth
CPT/HCPCS: 36415; 81000; 85025; 86850; 86900; 86901; 87088; 90686; 94664

== ENCOUNTER → 2021-11-02 | Outpatient (CLI) | payer BC ==
[~2021-11-02] MED LIST: ACHD5005 PO; DOCU100C37 PO; IBUP-844 PO; PNV91TAB6 PO
--- NOTE | 2021-11-02 16:34 | Diagnostic Imaging Report ---
INDICATION: survey. TECHNIQUE: Multiple real-time grayscale images were obtained over the gravid uterus. COMPARISON: None. FINDINGS: There is a single live fetus in a transverse presentation with head to the maternal right. heart rate was recorded at 156 BPM. Placenta is posterior and marginal. Amniotic fluid index is 15.8 cm. Cervical length is 5.7 cm. kidneys, bladder and stomach are unremarkable. brain is unremarkable. There is a four-chamber heart. There is a three-vessel cord with normal insertion. spine is unremarkable. Biometrical measurements are as follows: Biparietal 4.65 cm, age 20 weeks 1 days. Head circumference 17.82 cm, age 20 weeks 2 days. Abdominal circumference 14.14 cm, age 19 weeks 4 days. Femur length 3.33 cm, age 20 weeks 3 days. Sonographic estimate age: 20 weeks 1 days. Sonographic estimated date of delivery: 03/21/2022. Estimated Weight: 324 gm (+/- 48 gm). LMP percentile: 29%. heart rate: 156 beats per minute. number: 1 of 1. IMPRESSION: Single live IUP of 20 weeks 1 day gestational age with an estimated date of confinement sonographically of 03/21/2022. survey is unremarkable, although the posterior placenta does appear to be in a marginal location. Follow-up would be recommended. Dictated by: Dictated on workstation # [id number]
== END ==
LOC: RAD 15:15
PROVIDERS: ATTEND Obstetrics & Gynecology
DX: Z34.02 Encounter for supervision of normal first pregnancy, second trimester (principal); Z3A.20 20 weeks gestation of pregnancy
CPT/HCPCS: 76805

== ENCOUNTER 2022-02-13 09:50 | Outpatient (CLI) | payer BC ==
[~2022-02-13] VITALS: Ht 157.4 cm; Wt 82.1 kg
[2022-02-13] VITALS (11 sets, daily range): BP systolic 104–135; BP diastolic 61–76
[2022-02-13 10:30] LABS: BILIRUBIN,URINE NEGATIVE (NEGATIVE); CLARITY,URINE CLEAR; COLOR,URINE YELLOW; GLUCOSE, URINE (UA) NEGATIVE (NEGATIVE); KETONES,URINE NEGATIVE (NEGATIVE); LEUKOCYTE ESTERASE ,URINE 1+ (NEGATIVE); NITRITE,URINE NEGATIVE (NEGATIVE); PROTEIN,URINE NEGATIVE (NEGATIVE)
[2022-02-13 10:51] LABS: BACTERIA,URINE FEW /HPF
--- NOTE | 2022-02-14 09:01 | Physician Query-Final Dx ---
,02/14/22 0901: Clinic Account Progress/Dx Physician Query: Please give diagnosis Please include # weeks gestation Date of Service Feb 13, 2022 at 09:50 HERMINIO ARMENDARIZ DO 02/14/22 1156: Clinic Account Progress/Dx DIAGNOSIS: Diagnosis 35 week IUP Fall in ,MayFeb 14, 2022 09:01 HERMINIO ARMENDARIZ DO Feb 14, 2022 11:56
== END 2022-02-13 14:15 | disposition home or self-care (01) ==
LOC: LDRP 09:50 → WSo 09:50
PROVIDERS: ATTEND Obstetrics & Gynecology
DX: O9A.213 Injury, poisoning and certain other consequences of external causes complicating pregnancy, third trimester (principal); Z3A.35 35 weeks gestation of pregnancy
CPT/HCPCS: 81000; 87088

== ENCOUNTER 2022-03-07 05:29 | Outpatient (CLI) | payer BC ==
[~2022-03-07] VITALS: Ht 159.4 cm; Wt 83.0 kg
== END 2022-03-07 12:58 | disposition home or self-care (01) ==
LOC: PREOP 05:29
PROVIDERS: ATTEND Obstetrics & Gynecology
DX: Z01.818 Encounter for other preprocedural examination (principal)

== ENCOUNTER 2022-03-14 05:22 | Inpatient (IN) | payer BC ==
[2022-03-14] VITALS (12 sets, daily range): BP systolic 106–128; BP diastolic 64–86
[~2022-03-14] VITALS: Ht 157.4 cm; Wt 81.0 kg
[2022-03-14] MEDS ORDERED: CATHETER FLUSH 10 ML SYR IV PRN (05:30)
[2022-03-14] MEDS ORDERED: METOCLOPRAMIDE INJ 10 MG/2 ML (REGLAN) IV ONE (05:30)
[2022-03-14] MEDS ORDERED: LACTATED RINGERS 1,000 ML IV PRN (05:30)
[2022-03-14] MEDS ORDERED: ceFAZolin INJECTION 2,000 MG in NS (IVPB) 50 ML IV ONE (05:30)
[2022-03-14] MEDS ORDERED: CITRIC ACID/SOB CIT (BICITRA) 30 ML UDC PO ONE (05:30)
[2022-03-14] MEDS ORDERED: FAMOTIDINE 20MG/2ML IV (PEPCID) IV ONE (05:30)
[2022-03-14] MEDS ORDERED: ceFAZolin INJECTION 2,000 MG ONE (05:47)
[2022-03-14] MEDS ORDERED: CITRIC ACID/SOB CIT (BICITRA) 30 ML UDC ONE (05:47)
[2022-03-14] MEDS ORDERED: METOCLOPRAMIDE INJ 10 MG/2 ML (REGLAN) ONE (05:48)
[2022-03-14] MEDS ORDERED: FAMOTIDINE 20MG/2ML IV (PEPCID) ONE (05:48)
[2022-03-14] MEDS ORDERED: NS (IVPB) 100 ML ONE (05:49)
[2022-03-14 05:55] LABS: BASOPHILS % (AUTO) 0 % (0-10); EOSINOPHILS % (AUTO) 1 % (0-10); HEMATOCRIT 32 % (35-52); HEMOGLOBIN 10.7 g/dL (11.5-16.0); LYMPHOCYTES # (AUTO) 2.8 10^3/uL (1.0-4.0); LYMPHOCYTES % (AUTO) 28 % (12-44); MEAN CORPUSCULAR HEMOGLOBIN 29 pg (25-34); MEAN CORPUSCULAR HGB CONC 34 g/dL (32-36); MEAN CORPUSCULAR VOLUME 87 fL (80-99); MEAN PLATELET VOLUME 11.9 fL (9.0-12.2); MONOCYTES # (AUTO) 0.7 10^3/uL (0.0-1.0); MONOCYTES % (AUTO) 7 % (0-12); NEUTROPHILS # (AUTO) 6.2 10^3/uL (1.8-7.8); NEUTROPHILS % (AUTO) 63 % (42-75); PLATELET COUNT 181 10^3/uL (130-400); WHITE BLOOD COUNT 9.8 10^3/uL (4.3-11.0)
[2022-03-14 05:56] LABS: EOSINOPHILS # (AUTO) 0.1 10^3/uL (0.0-0.3)
[2022-03-14] MEDS: LACTATED RINGERS 1,000 ML IV PRN ×2 (06:00→07:02)
[2022-03-14] MEDS ORDERED: fentaNYL INJ 100 MCG/2 ML AMP ONE (07:03)
[2022-03-14] MEDS ORDERED: OXYTOCIN PRE-MIX DRIP 1,000 ML IV ONE (07:03)
[2022-03-14] MEDS ORDERED: ROPIVACAINE 5MG/ML 30ML VIAL ONE (07:03)
--- NOTE | 2022-03-14 07:25 | History & Physical-OB ---
OB - Chief Complaint & HPI Date/Time Date of Admission: Date of Admission: Mar 14, 2022 at 05:22 Date seen by a Provider: Mar 14, 2022 Time Seen by a Provider: 07:15 Chief Complaint/History OB-Reason for Admission/Chief: Section Hx : 2 Hx Para: 1 Expected Date of Delivery: Mar 20, 2022 Gestational Age in Weeks: 39 Gestational Age in Days: 1 Indication for : desires repeat Admission Nurse Assessment Rev: Yes History of Labs O pos Antibody neg RI RPR NR HBsAg NR HIV NR GC neg GBS neg Allergies and Home Medications Allergies Coded Allergies: No Known Drug Allergies (Unverified , 03/07/22) Patient Home Medication List Home Medication List Reviewed: Yes No Active Prescriptions or Reported Meds OB - History Hx of Present Care: Yes Ultrasounds: Normal mid trimester US Obstetrical Complications: None Medical Complications: None Patient Past Medical History N/A Social History/Family History 2nd Hand Smoke Exposure: No Immunizations Influenza Vaccine Up-to-Date: Yes; Up-to-Date First/Initial COVID19 Vaccine: 2020 Second COVID19 Vaccination: 2020 OB - Admission Exam Physical Exam Vitals: Vital Signs 03/14/22 03/14/22 05:31 06:32 Temp 36.8 Pulse 85 Resp 18 B/P (MAP) 118/71 (87) Pulse Ox 99 O2 Delivery Room Air HEENT: NCAT Heart: Rhythm Normal Lungs: Clear Abdomen: Gravid Extremities: Normal Reflexes: Normal Membranes: Intact Heart Rate: 130's Accelerations: Accelerations Present Decelerations: No Decelerations Short Term Variability: Present Bank Accountant Variability: Average (6-25) Contractions on Admission: >10 Minutes Apart Intensity: Mild Labs Laboratory Tests Test 03/14/22 05:40 Range/Units White Blood Count 9.8 4.3-11.0 10^3/uL Red Blood Count 3.66 L 3.80-5.11 10^6/uL Hemoglobin 10.7 L 11.5-16.0 g/dL Hematocrit 32 L 35-52 % Mean Corpuscular Volume 87 80-99 fL Mean Corpuscular Hemoglobin 29 25-34 pg Mean Corpuscular Hemoglobin Concent 34 32-36 g/dL Red Cell Distribution Width 12.8 10.0-14.5 % Platelet Count 181 130-400 10^3/uL Mean Platelet Volume 11.9 9.0-12.2 fL Immature Granulocyte % (Auto) 0 % Neutrophils (%) (Auto) 63 42-75 % Lymphocytes (%) (Auto) 28 12-44 % Monocytes (%) (Auto) 7 0-12 % Eosinophils (%) (Auto) 1 0-10 % Basophils (%) (Auto) 0 0-10 % Neutrophils # (Auto) 6.2 1.8-7.8 10^3/uL Lymphocytes # (Auto) 2.8 1.0-4.0 10^3/uL Monocytes # (Auto) 0.7 0.0-1.0 10^3/uL Eosinophils # (Auto) 0.1 0.0-0.3 10^3/uL Basophils # (Auto) 0.0 0.0-0.1 10^3/uL Immature Granulocyte # (Auto) 0.0 0.0-0.1 10^3/uL OB - Assessment/Plan/Diagnosis Assessment Assessment: section Admission Dx 31 yo @ 39 weeks Previous Admission Status: Inpatient Order (span 2 midnights) Reason for Inpatient Admission: Repeat Plan Plan: Section HERMINIO ARMENDARIZ DO Mar 14, 2022 07:25
--- NOTE | 2022-03-14 07:28 | Discharge Inst-Women's Service ---
Discharge Inst-Women's Serv Depart Medication/Instructions New, Converted or Re-Newed RX: Transmitted to Pharmacy Final Diagnosis POD 2 RLTCS Problems Reviewed?: Yes Consults/Follow Up Additional Follow Up: Yes Orders/Referrals Dr. Cox in 7-10 days and in 6 weeks Activity Activity: Activity as Tolerated Driving Instructions: No Driving for 1 Week NO SMOKING: NO SMOKING Nothing Inside Vagina: No Douching, No [place], No Tampons Diet Discharge Diet: No Restrictions Symptoms to Report to : Bleeding Excessive, Pain Increased, Fever Over 101 Degrees F, Vaginal Bleeding Increase, Questions/Concerns For Any Problems or Questions: Contact Your Physician Skin/Wound Care Infection Signs and Symptoms: Increased Redness, Foul Odor of Wound, Increased Drainage, Skin Itchy or Has a Rash, Increased Swelling, Temperature Above 101 F Operative Area Clean and Dry: Keep Incision Clean/Dry Stitches/Antonito/Dermabond: Dermabond, Care of Stitches Bathing Instructions: HERMINIO Nickerson DO Mar 14, 2022 07:28
[2022-03-14] MEDS ORDERED: IBUP-844 PO (07:29)
[2022-03-14] MEDS ORDERED: ACHD5005 PO (07:29)
[2022-03-14] MEDS ORDERED: DOCU100C37 PO (07:29)
[2022-03-14] MEDS ORDERED: ONDANSETRON 4 MG/2 ML (SDV) Z0FRAN IVP PRN (07:30)
[2022-03-14] MEDS ORDERED: NALOXONE 0.4 MG/ML 1 ML (NARCAN) VIAL IV PRN (07:30)
[2022-03-14] MEDS ORDERED: TETANUS,DIPTH,PERTUSS P/F (BOOSTRIX) 0.5 ML VIAL IM SCH (07:30)
[2022-03-14] MEDS ORDERED: MEASLES,MUMPS,RUBELLA 1 EA INJ SC SCH (07:30)
[2022-03-14] MEDS ORDERED: KETOROLAC 30 MG/ML VIAL ONE (08:17)
[2022-03-14] MEDS: OXYTOCIN PRE-MIX DRIP 500 ML IV SCH ×2 (08:54→11:46)
[2022-03-14] MEDS: KETOROLAC 30 MG/ML VIAL IV SCH ×3 (13:33→22:48)
[2022-03-14] MEDS: HYDROcodone/APAP 5 MG/325 MG (LORTAB) TAB PO PRN ×3 (13:34→22:42)
--- NOTE | 2022-03-14 16:19 | OPERATIVE REPORT ---
PREOPERATIVE DIAGNOSES: 1. A 31-year-old G2, P1 at 39 weeks gestation. 2. Previous section. POSTOPERATIVE DIAGNOSES: 1. A 31-year-old G2, P1 at 39 weeks gestation. 2. Previous section. PROCEDURE: Repeat low transverse section. SURGEON: Dr. Sky Cox. ANESTHESIA: Spinal. ESTIMATED BLOOD LOSS: 800 mL. Urine output was 75 mL clear at end of procedure. FLUIDS: 1000 mL lactated Ringer's solution. FINDINGS: A live male weighing 7 pounds 2 ounces, Apgars of 8 and 9. Grossly normal appearing uterus, bilateral fallopian tubes and ovaries. SPECIMEN SENT: None. INDICATIONS FOR PROCEDURE: This 31-year-old female who is a patient who had sought care in my office. Her care was uncomplicated with the exception of previous section. The patient opted to proceed with repeat . Risks of the procedure were discussed with the patient in detail including risk of bleeding, infection, damage to surrounding structures including but not limited to bowel, bladder, ureters, kidneys, possible need for reoperation, postoperative complications that may occur recovery time for hemorrhage from anesthesia and even after everything was discussed with the patient in detail. Consent was obtained, the patient was taken to the operating room. OPERATIVE REPORT IN DETAIL: Once in the operating room and spinal analgesia was found to be adequate, she was placed in the supine position with a leftward tilt, prepped and draped in normal sterile fashion. A timeout was performed. Anesthesia was tested. I did make a Pfannenstiel skin incision to the previously existing scar using a knife and carried down to the fascia using Bovie cautery and the fascial incision extended laterally using Bovie cautery. The superior aspect of the fascial incision was then grasped with Brent clamps, tented up and dissected off the rectus muscles. The inferior aspect of the fascial incision was then grasped with Brent clamps, tented upward, dissected off the rectus muscles. The rectus muscles were dissected in the midline using sharp dissection, which exposed the peritoneum, which entered bluntly and extended using blunt traction. Severo ring retractor was placed in the peritoneal incision, which offered excellent lateral sidewall retraction identified lower uterine segment was found to be thinned out. I made a low transverse incision to the vesicouterine peritoneum and bluntly dissecting this off the lower uterine segment, creating a bladder flap. I then proceeded with myotomy until membranes were visualized, at which point I extended the uterine incision laterally and superiorly using bandage scissors and the anatomy was then performed using an Allis clamp. Clear fluid was noted. The infant was found in the vertex presentation. With gentle fundal pressure, the 's head was elevated up to the incision and where it was delivered through the incision. The nares and oropharynx were bulb suctioned. Anterior and posterior shoulders were delivered. The was then brought to the operative field where the cord was clamped and cut and infant was handed off to waiting nurses in attendance. Cord blood was collected. Three-vessel cord intact placenta was delivered spontaneously thereafter. IV Pitocin was initiated to facilitate uterine contraction. Uterine fundus confirmed by manual massage. The uterus was then exteriorized and cleared of all endometrial clots and debris. I then proceeded with closing the uterine incision using 0 Vicryl suture in a running locked fashion. Second layer of imbricating 0 Monocryl was placed. Excellent hemostasis was noted. After doing this, I then placed the uterus back in the pelvis and copiously irrigated the pelvis with normal saline. Once again, there was no active bleeding noted from my dissection planes. I placed Interceed antiadhesive over low transverse incision, I removed the Seevro ring retractor and then proceeded with closing the peritoneum using 3-0 Vicryl suture in a running fashion. The rectus muscle was reapproximated using 3-0 Vicryl suture in interrupted fashion. The fascia was reapproximated using 0 Vicryl suture in a running fashion. Subcutaneous tissue was reapproximated using 3-0 plain interrupted subcutaneous stitch and the skin was reapproximated using 4-0 Monocryl in a running subcuticular. Dermabond was applied to incision. Sterile dressing is adhesed white tape. The patient tolerated the procedure well and was taken to recovery room in stable condition. Lap and sponge counts were correct at the end of the procedure. Instrument counts were correct as well. Two grams of Ancef given preoperatively for infection prophylaxis. Job ID: [id number] DocumentID: [id number] Dictated Date: 03/14/2022 08:46:43 Deburring Technician Date: 03/14/2022 16:17:00 Dictated By: DO LELA BARKER
[2022-03-14] MEDS: CATHETER FLUSH 10 ML SYR IV SCH ×2 (20:33→22:47)
[2022-03-14] MEDS: DOCUSATE SODIUM 100 MG (COLACE) CAP PO SCH ×2 (20:33→22:47)
[2022-03-15] VITALS: BP 118/73
[2022-03-15] MEDS: KETOROLAC 30 MG/ML VIAL IV SCH (02:52)
[2022-03-15 04:21] VITALS: BP 118/71
[2022-03-15] MEDS: HYDROcodone/APAP 5 MG/325 MG (LORTAB) TAB PO PRN ×2 (04:21→14:55)
[2022-03-15 06:06] LABS: BASOPHILS % (AUTO) 0 % (0-10); EOSINOPHILS # (AUTO) 0.1 10^3/uL (0.0-0.3); EOSINOPHILS % (AUTO) 2 % (0-10); HEMATOCRIT 28 % (35-52); LYMPHOCYTES # (AUTO) 2.2 10^3/uL (1.0-4.0); LYMPHOCYTES % (AUTO) 23 % (12-44); MEAN CORPUSCULAR HEMOGLOBIN 29 pg (25-34); MEAN CORPUSCULAR HGB CONC 33 g/dL (32-36); MEAN CORPUSCULAR VOLUME 89 fL (80-99); MEAN PLATELET VOLUME 12.3 fL (9.0-12.2); MONOCYTES # (AUTO) 0.7 10^3/uL (0.0-1.0); MONOCYTES % (AUTO) 7 % (0-12); NEUTROPHILS # (AUTO) 6.5 10^3/uL (1.8-7.8); NEUTROPHILS % (AUTO) 68 % (42-75); PLATELET COUNT 161 10^3/uL (130-400); WHITE BLOOD COUNT 9.5 10^3/uL (4.3-11.0)
[2022-03-15] MEDS: CATHETER FLUSH 10 ML SYR IV SCH ×2 (06:16→16:05)
--- NOTE | 2022-03-15 07:31 | Postpartum Progress Note ---
Note Note Day # 1 Subjective: Patient is without complaints. Ambulating, voiding. Tolerating a regular diet without nausea or vomiting. Normal lochia. Pain is well controlled with oral pain medications. Breast feeding. She has not had a bowel movement yet. Objective: Mother was sitting up in bed at the beginning of the interview. Physical Exam: General - Alert and oriented, no apparent distress, clear breath sounds bilaterally. Heart has regular rate and rhythm. Abdomen - Soft, appropriately tender to palpation, non-distended, fundus firm at umbilicus, tender around her incision. No erythema or discharge around the incision. Extremities - no edema, negative Aime's bilaterally Assessment: post- day # 1, status post repeat section. Recovering well, hemodynamically stable Plan: Routine care. Encourage breast feeding. Encourage ambulation. Ferrous sulfate supplementation. Plan for discharge tomorrow. Vitals - Labs Vital Signs - I&O Vital Signs Date Time Temp Pulse Resp B/P (MAP) Pulse Ox O2 Delivery O2 Flow Rate FiO2 03/15/22 04:21 36.2 72 14 118/71 (87) 97 Room Air 03/15/22 00:00 36.4 100 12 118/73 (88) 96 Room Air 03/14/22 20:00 36.6 106 14 128/78 (95) 97 Room Air 03/14/22 15:40 37.0 108 16 126/86 (99) 97 Room Air 03/14/22 11:30 37.2 101 16 121/75 (90) 98 Room Air 03/14/22 11:19 Room Air 03/14/22 09:35 36.2 85 16 111/67 (82) 100 Room Air 03/14/22 09:24 Room Air 03/14/22 09:20 36.1 20 109/72 (84) 99 Room Air 03/14/22 09:15 Room Air 03/14/22 09:10 19 112/71 (85) 98 Room Air 03/14/22 09:00 16 109/72 (84) 98 Room Air 03/14/22 09:00 Room Air 03/14/22 08:50 18 110/67 (81) 99 Room Air 03/14/22 08:45 Room Air 03/14/22 08:40 15 106/64 (78) 98 Room Air 03/14/22 08:31 36.6 16 110/64 (79) 99 Room Air 03/14/22 08:31 Room Air I & O 03/15/22 07:00 Intake Total 2250 ml Output Total 1700 ml Balance 550 ml Labs Laboratory Tests 03/15/22 05:13: White Blood Count 9.5, Red Blood Count 3.12L, Hemoglobin 9.0L, Hematocrit 28L, Mean Corpuscular Volume 89, Mean Corpuscular Hemoglobin 29, Mean Corpuscular Hemoglobin Concent 33, Red Cell Distribution Width 13.0, Platelet Count 161, Mean Platelet Volume 12.3H, Immature Granulocyte % (Auto) 0, Neutrophils (%) (Auto) 68, Lymphocytes (%) (Auto) 23, Monocytes (%) (Auto) 7, Eosinophils (%) (Auto) 2, Basophils (%) (Auto) 0, Neutrophils # (Auto) 6.5, Lymphocytes # (Auto) 2.2, Monocytes # (Auto) 0.7, Eosinophils # (Auto) 0.1, Basophils # (Auto) 0.0, Immature Granulocyte # (Auto) 0.0 SURENDRA VARNER Mar 15, 2022 07:31
[2022-03-15] MEDS: IBUPROFEN 600 MG (MOTRIN) TAB PO SCH ×3 (07:59→20:47)
[2022-03-15] MEDS: DOCUSATE SODIUM 100 MG (COLACE) CAP PO SCH ×2 (07:59→20:47)
[2022-03-15 08:00] VITALS: BP 120/79
--- NOTE | 2022-03-15 13:25 | Anesthesia-Regional Post-Op ---
Regional Patient Condition Mental Status: Alert, Oriented x3 Circulation: Same as Pre-Op Headache: Absent Sensation: Full Recovery Motor Block: Absent Post Op Complications Complications None Follow Up Care/Instructions Patient Instructions None needed. Anesthesia/Patient Condition Patient is doing well, no complaints, stable vital signs, no apparent adverse anesthesia problems. No complications reported per nursing. DAWOOD AGUIRRE CRNA Mar 15, 2022 13:25
[2022-03-15 16:00] VITALS: BP 118/81
[2022-03-15 20:52] VITALS: BP 122/80
[2022-03-16] MEDS: IBUPROFEN 600 MG (MOTRIN) TAB PO SCH ×2 (03:14→09:12)
[2022-03-16 03:15] VITALS: BP 122/71
--- NOTE | 2022-03-16 08:30 | Postpartum Progress Note ---
Note Note Day # 2 Subjective: Patient is without complaints. Ambulating, voiding. Tolerating a regular diet without nausea or vomiting. Normal lochia. Pain is well controlled with oral pain medications. feeding. Pt reports defecating and urinating without complaints. Objective: Pt was alert and orientaed to self. Appeared well w/out distress sitting up in bed. Pt has been able to ambulate to restroom without any complications. Physical Exam: General - Alert and oriented, no apparent distress Cardiology - RRR normal S1, normal S2, no murmurs Respiratory - CTAB no wheezes or rhonchi Abdomen - Soft, appropriately tender to palpation, non-distended, fundus firm at umbilicus Extremities - no edema, negative Aime's bilaterally Assessment: post- day # 2, status post Cesarian Section. Recovering well, hemodynamically stable Plan: Routine care. Encourage breast feeding. Encourage ambulation. Ferrous sulfate supplementation. Plan for discharge today Vitals - Labs Vital Signs - I&O Vital Signs Date Time Temp Pulse Resp B/P (MAP) Pulse Ox O2 Delivery O2 Flow Rate FiO2 03/16/22 03:15 36.4 87 16 122/71 (88) 98 Room Air 03/15/22 20:52 36.6 101 18 122/80 (94) 96 03/15/22 16:00 36.4 97 18 118/81 (93) 99 I & O 03/16/22 07:00 Intake Total 1300 ml Output Total 750 ml Balance 550 ml Labs Microbiology 03/14/22 MRSA Screen - Final, Complete MRSA not isolated JOHN TIPTON Mar 16, 2022 08:30
[2022-03-16] MEDS: DOCUSATE SODIUM 100 MG (COLACE) CAP PO SCH (09:12)
[2022-03-16] MEDS: HYDROcodone/APAP 5 MG/325 MG (LORTAB) TAB PO PRN (09:16)
[2022-03-16 09:17] VITALS: BP 122/80
== END 2022-03-16 11:05 | disposition home or self-care (01) | DRG 788 ==
LOC: LDRP 05:22 → WS 09:49
PROVIDERS: ADMIT Obstetrics & Gynecology; ATTEND Obstetrics & Gynecology
PROC: 10D00Z1 Extraction of Products of Conception, Low, Open Approach (ICD-10-PCS; principal; 2022-03-14 07:48)
DX: O34.211 Maternal care for low transverse scar from previous cesarean delivery (principal); Z3A.39 39 weeks gestation of pregnancy; Z37.0 Single live birth
CPT/HCPCS: 36415; 85025; 86850; 86900; 86901; 87081; 94664